=== PATIENT | female | born 1980 | race African-American/Black ===

== ENCOUNTER 2025-03-23 19:58 | Emergency (ER) | payer OTHER ==
[~2025-03-23] VITALS: Ht 165.1 cm; Wt 84.0 kg
[2025-03-23 20:04] VITALS: O2SAT 100
[2025-03-23] MEDS ORDERED: ACET-2708 PO (22:49)
[2025-03-23] MEDS ORDERED: LIDO-53 TP (22:49)
[2025-03-23] MEDS: ACETAMINOPHEN 325MG TABLET PO ONE (22:55)
[2025-03-23 23:03] VITALS: BP 122/62; PULSE 81; RESP 18; TEMP 36.7; O2SAT 100
== END 2025-03-23 23:06 | disposition home or self-care (01) ==
LOC: ER 19:58
DX: S13.4XXA Sprain of ligaments of cervical spine, initial encounter (principal); I10 Essential (primary) hypertension; V43.52XA Car driver injured in collision with other type car in traffic accident, initial encounter; Y92.410 Unspecified street and highway as the place of occurrence of the external cause; Y93.89 Activity, other specified; Y99.8 Other external cause status
CPT/HCPCS: 81025; 99282; 99283